=== PATIENT | male | born 1985 | race Caucasian/White ===

== ENCOUNTER 2023-02-20 08:00 | Outpatient (CLI) | payer OTHER ==
--- NOTE | 2023-02-20 12:21 | XRAY Report ---
PROCEDURE: Knee 4 View BILAT INDICATIONS: BILAT KNEE PAIN TECHNIQUE: 4 views each of the right and left knees. COMPARISON: None. FINDINGS: Bones: No acute fractures or dislocations. No suspicious bony lesions. Minimal narrowing of the m edial femorotibial compartment joint spaces bilaterally. The lateral and anterior compartment joint s paces are maintained. Soft tissues: No knee joint effusion. No suspicious soft tissue calcifications or masses. IMPRESSION: Minimal medial compartment osteoarthrosis. No acute osseous abnormality. If symptoms persist or there is continued clinical concern, further emely luation with MRI or CT may be helpful. Reviewed by: Lorenzo Hopper MD on 02/20/2023 12:20 PM PDT Approved by: Lorenzo Hopper MD on 02/20/2023 12:20 PM PDT Station ID: [id number]
== END 2023-02-20 23:59 | disposition home or self-care (01) ==
LOC: DI.WOS 08:00
PROVIDERS: ATTEND Physician Assistant Surgical
DX: M17.0 Bilateral primary osteoarthritis of knee (principal)

== ENCOUNTER 2023-03-15 08:00 | Outpatient (CLI) | payer OTHER ==
--- NOTE | 2023-03-15 16:26 | XRAY Report ---
PROCEDURE: Wrist 3 View RT INDICATIONS: RIGHT WRIST PAIN TECHNIQUE: 3 views of the wrist were acquired. COMPARISON: Right wrist MRI 03/17/2011. FINDINGS: Bones: No acute fractures or dislocations. No suspicious bony lesions. Soft tissues: No suspicious soft tissue calcifications or masses. IMPRESSION: No acute osseous abnormality. If symptoms persist or there is continued clinical concern, further emely luation with MRI or CT may be helpful. Reviewed by: Lorenzo Hopper MD on 03/15/2023 4:24 PM PDT Approved by: Lorenzo Hopper MD on 03/15/2023 4:24 PM PDT Station ID: [id number]
== END 2023-03-15 23:59 | disposition home or self-care (01) ==
LOC: DI.WOS 08:00
PROVIDERS: ATTEND Physician Assistant Surgical
DX: M25.531 Pain in right wrist (principal)